=== PATIENT | female | born 1960 | race Caucasian/White ===

== ENCOUNTER → 2016-09-25 | Outpatient (CLI) | payer BC ==
[~2016-09-25] MED LIST: GLIMEPIRIDE 4MG4 MG PO; JANUVIA100 MG PO; METFORMIN850 MG PO; NAPROSYN 250MG250 MG PO; SIMVASTATIN10 MG PO; ULTRAM50 MG PO
--- NOTE | 2016-09-28 10:13 | RADIOLOGY REPORT PS360 ---
US BREAST-LT COMPLETE W/AXILLA COMPARISON: Mammogram of 09/10/2016 INDICATION: Abnormal mammogram ORDERING PHYSICIAN: Marcos Stroud MD PATIENT AGE: 56 years TECHNIQUE: Routine images performed of the left breast FINDINGS: There is a 9 x 4 mm area of hypoechogenicity in the upper outer left breast at the 2:00 position corresponding to the mammographic abnormality likely related to an intramammary lymph node. Sonographic appearance is not as convincing as the mammographic appearance. This is probably benign. Six-month follow-up recommended. IMPRESSION: Probable intramammary lymph node upper outer left breast. No convincing evidence of malignancy. BI-RADS CATEGORY: 3_Probably Benign-Short Term F/U RECOMMENDED FOLLOWUP: 6 month mammographic and sonographic follow-up of the left breast (A letter has been sent to the patient regarding results of the study.)
== END ==
LOC: RAD 14:49
DX: N63 Unspecified lump in breast (principal); N95.1 Menopausal and female climacteric states

== ENCOUNTER → 2016-10-31 | Outpatient (CLI) | payer BC ==
--- NOTE | 2016-10-31 11:44 | RADIOLOGY REPORT PS360 ---
PROCEDURE: 2-D M-mode and color Doppler study INDICATIONS FOR THE TEST: Chest pain COPD Heart Murmur Tobacco Smoking PalpitationsX Fatigue Syncope Edema HypertensionXDiabetes MellitusXX Rheumatic Fever SOB VERDUZCO ObesityXHyperlipidemiaX Family History HD Additional History PATIENT INFORMATION HEIGHT: 70 WEIGHT:257 GENDER: Female B/P:120/60 2-D/M-MODE INTERPRETATION: 2-D MEASUREMENTS OBSERVED VALUES IN CMS Right Ventricular Dimension (RVDd) 2.4 Interventricular Septum (Thickness)(IVsd) .9 Left Ventricular Internal Dimensions(LVIDd) 5.0 Left Ventricular Posterior Wall (Thickness)(LVPWd) .9 Aortic Root 2.6 Aortic Cusp Separation 1.1 Left Atrial Dimensions (LAD) 3.5 2D 1. Left atrium is qualitatively mildly enlarged, left ventricle is normal size, there is no concentric left ventricular hypertrophy, visually estimated ejection fraction of 55% with no obvious regional wall motion abnormality. 2. The right atrium and right ventricle are normal size and contractility. 3. The aortic valve is minimally thickened and calcified. 4. The mitral valve leaflets are minimally thickened, there is no mitral stenosis. 5. The tricuspid valve is structurally normal. 6. The pulmonic valve is not well visualized. 7. No significant pericardial effusion noted. DOPPLER INTERROGATION: Doppler interrogation of the aortic mitral and tricuspid valvular presence of mild aortic, mild mitral and tricuspid regurgitation, tricuspid regurgitant jet velocity is insufficient for calculation of the right ventricular systolic pressure, diastolic parameters are within normal range. CONCLUSION: 1. Mildly enlarged left atrium, normal left ventricular size, visually estimated ejection fraction 55% with no obvious regional wall motion abnormality, diastolic parameters are within normal range. 2. Mild aortic, mild mitral and tricuspid regurgitation, tricuspid and enteric velocity insufficient for calculation of the right ventricular systolic pressure. 3. No significant pericardial effusion noted.
--- NOTE | 2016-10-31 13:32 | RADIOLOGY REPORT PS360 ---
History and Indications: Coronary artery disease, hypertension, diabetes, hyperlipidemia, family history, chest pain suggestive of angina, palpitation. Procedure: Patient received a 0.4 mg of Lexiscan, resting heart rate was 65 bpm resting blood pressure 141/75, with Lexiscan maximum heart rate achieved was 93 bpm which is less than 85% of the maximum predicted heart rate and a blood pressure was 144/75, with Lexiscan patient complained of chest pain shortness of breath . Electrocardiogram: Resting electrocardiogram showed sinus rhythm, with Lexiscan less than 1.[address] segment depression noted from the baseline EKG. The EKG portion of the Lexiscan is nondiagnostic. Cardiac stress and resting SPECT images: Cardiac stress and the suspect images were obtained using technetium 99 Myoview 10.5 mCi at rest, and 30.6 mCi at stress, gated SPECT further analysis of segmental wall motion and calculation of the ejection fraction also done. Cardiac stress and the suspect images show a mild fixed defect in the anterior wall with normal contractility in the gated SPECT is likely secondary to soft tissue attenuation from the breast, no reversible ischemia seen. Computer derived ejection fraction is over 65% with no obvious regional wall motion abnormality, right ventricle is normal size and contractility. Conclusion: 1. The EKG portion of the Lexiscan is nondiagnostic. 2. No obvious scintigraphic evidence of reversible ischemia seen. Computer derived ejection fraction is over 65% no obvious regional wall motion abnormality. Right ventricle is normal size and contractility.
== END ==
LOC: RAD 06:56
DX: R00.2 Palpitations (principal); I25.10 Atherosclerotic heart disease of native coronary artery without angina pectoris; E11.9 Type 2 diabetes mellitus without complications; I10 Essential (primary) hypertension; E78.5 Hyperlipidemia, unspecified; I20.9 Angina pectoris, unspecified
CPT/HCPCS: A9502; J2785

== ENCOUNTER → 2017-03-28 | Outpatient (CLI) | payer BC ==
--- NOTE | 2017-03-29 12:21 | RADIOLOGY REPORT PS360 ---
DIG MAMM-DX UNI A/VWS-LT W/CAD COMPARISON: 09/10/2016 INDICATION: Follow-up abnormal mammogram ORDERING PHYSICIAN: Marcos Stroud MD PATIENT AGE: 56 years TECHNIQUE: Standard images obtained with spot compression views and ML views FINDINGS: Average fibroglandular tissue. There is a noted nodular opacity in the upper outer aspect of the left breast is once again noted not significantly changed well-circumscribed and likely related to a intramammary lymph node. No malignant appearing mass or malignant appearing microcalcification is evident. There was a small focal area of increased density in the central aspect of the left breast which did appear to compress out on the spot compression views. Left breast ultrasound: 8 mm hypoechoic area in the 2:00 region left breast similar to the previous exam probably related to a small lymph node small nodes present in the left axilla IMPRESSION: No change. No evidence of malignancy BI-RADS CATEGORY: 2_Benign RECOMMENDED FOLLOWUP: Screening mammogram September 2017 (A letter has been sent to the patient regarding results of the study.)
== END ==
LOC: RAD 12:58
DX: R92.8 Other abnormal and inconclusive findings on diagnostic imaging of breast (principal); N60.02 Solitary cyst of left breast; N95.1 Menopausal and female climacteric states
CPT/HCPCS: G0206-LT